=== PATIENT | male | born 2000 | race Two or more races ===

== ENCOUNTER 2024-10-10 03:31 | Emergency (ER) | payer MEDICAID, OTHER ==
[~2024-10-10] VITALS: Ht 165.1 cm; Wt 86.4 kg
--- NOTE | 2024-10-10 04:04 | ED.PDOC ---
Eye-HPI HPI Comments PATIENT COMES WITH C/C OF UPPER TOOTH PAIN 10/10 FOR 2 MONTHS AND AN INCREASED HEADACHE FOR 2 HOURS SENSITIVE TO HEAT AND COLD. PATIENT HAS RIGHT SIDED FACIAL SWELLING. REPORTS THAT HE HASNT BEEN ABLE TO GET TO HIS DENTIST IN [place]. Chief Complaint: Tooth Pain Time Seen by MD: 03:53 Reviewed Notes: Nurses Notes, Medications, Allergies Allergies: Coded Allergies: NO KNOWN ALLERGIES (Unverified , 10/10/24) Home Meds Active Scripts Ibuprofen (Ibuprofen) 800 Mg Tab, 800 MG PO Q8HP PRN for 5 Days, #15 TAB Prov:CARINE HERBERTK MANAGER GALLERY 10/10/24 Amoxicillin & Pot Clavulanate (AUGMENTIN TABLET) 875 Mg Tb, 875 MG PO BID for 7 Days, #14 TAB Prov:DELORIS HERBERT MANAGER GALLERY 10/10/24 Information Source: Patient Past Medical History PAST MEDICAL HISTORY: Denies Surgical History: Denies all surgeries Family History Family History: Unknown Social History Smoker: Non-Smoker Alcohol: Denies ETOH Use Drugs: Denies Drug Use Constitutional: denies: chills, diaphoresis, fatigue, fever, malaise, sweats, weakness, others EENTM: reports: others (Dental pain); denies: blurred vision, double vision, ear bleeding, ear discharge, ear drainage, ear pain, ear ringing, eye pain, eye redness, hearing loss, mouth pain, mouth swelling, nasal discharge, nose b leeding, nose congestion, nose pain, photophobia, tearing, throat pain, throat swelling, voice changes Respiratory: denies: cough, hemoptysis, orthopnea, SOB at rest, shortness of breath, SOB with excertion, stridor, wheezing, others Cardiovascular: denies: chest pain, dizzy spells, diaphoresis, Dyspnea on exertion, edema, irregular heart beat, left arm pain, lightheadedness, palpitations, PND, syncope, others Gastrointestinal: denies: abdomen distended, abdominal pain, blood streaked bowels, constipated, diarrhea, dysphagia, difficulty swallowing, hematemesis, melena, nausea, poor appetite, poor fluid intake, rectal bleeding, rectal pain, vomiting, others Genitourinary: denies: burning, dysuria, flank pain, frequency, hematuria, incontinence, penile discharge, penile sore, pain, testicle pain, testicle swelling, urgency, others Neurological: denies: dizziness, fainting, headache, left sided numbness, left sided weakness, numbness, paresthesia, pre-existing deficit, right sided numbness, right sided weakness, seizure, speech problems, tingling, tremors, weakness, others Musculoskeletal: denies: back pain, gout, joint pain, joint swelling, muscle pain, muscle stiffness, neck pain, others Integumetry: denies: bruises, change in color, change in hair/nails, dryness, laceration, lesions, lumps, rash, wounds, others Allergic/Immunocompromised: denies: Difficulty Healing, Frequent Infections, Hives, Itching, others Hematologic/Lymphatic: denies: anemia, blood clots, easy bleeding, easy bruising, swollen glands, others Endocrine: denies: excessive hunger, excessive sweating, excessive thirst, excessive urination, flushing, intolerance to cold, intolerance to heat, unexplained weight gain, unexplained weight loss, others Psychiatric: denies: anxiety, bipolar disorder, depression, hopeless, panic disorder, schizophrenia, sleepless, suicidal, others Physical Exam General Appearance: No Apparent Distress, Normal HEENT: Pharynx Normal, TMs Normal, Other (RIGHT UPPER TOOTH 17. NOTED DECAY NO NOTED VISIBLE ABSCESS GUM ERYTHEMA NOTED ) Neck: Full Range of Motion, Non-Tender Respiratory: Lungs Clear, No Respiratory Distress, Normal Breath Sounds Cardiovascular: No Murmur, Normal Peripheral Pulses, Regular Rate/Rhythm Breast Exam: Deferred Gastrointestinal: Non Tender, Soft Genitalia: Deferred Pelvic: Deferred Rectal: Deferred Extremities: Normal capillary refill, Normal range of motion Musculoskeletal : Apperance: Normal Neurologic: Alert, sound effects manager II-XII nml as Tested, No Motor Deficits, Normal Affect, Normal Mood, No Sensory Deficits Cerebellar Function: Normal Reflexes: Normal Skin: Dry, Normal Color, Warm Lymphatic: No Adenopathy Was a procedure done? Was a procedure done?: No EENT DIFF Eye: N/A Ear: Otitis Media, Perforation, Dental, Pharyngitis X-Ray, Labs, Meds, VS Vital Signs Date Time Temp Pulse Resp B/P (MAP) Pulse Ox O2 Delivery O2 Flow Rate FiO2 5/5/25 03:52 98.9 72 20 139/78 (98) 97 98.9 Current Medications Medications (Trade) Dose Ordered Sig/Jessica Route Start Time Stop Time Status Last Admin Ketorolac Tromethamine (Toradol Injection) 60 mg ONCE ONCE IM 10/10/24 04:30 10/10/24 04:31 DC 10/10/24 04:44 Benzocaine (Hurricaine [place]) 1 spr ONCE ONCE MT 10/10/24 04:30 10/10/24 04:31 DC 10/10/24 04:45 Ceftriaxone Sodium (Rocephin) 1,000 mg ONCE ONCE IM 10/10/24 04:30 10/10/24 04:31 DC 10/10/24 04:44 Acetaminophen/ Hydrocodone Bitart ([place] 5/325MG Tab) 1 tab ONCE ONCE PO 10/10/24 04:30 10/10/24 04:31 DC 10/10/24 04:44 Time of 1ST Reevaluation: 03:30 Reevaluation 1ST: Unchanged Time of 2ND Reevaluation: 05:16 Reevaluation 2ND: Improved Patient Education/Counseling: Diagnosis, Treatment, Prognosis, Need For Follow Up Family Education/Counseling: No Family Present Departure 1 Departure Time of Disposition: 05:16 Impression: Primary Impression: Infected dental caries Disposition: 01 HOME / SELF CARE / HOMELESS Condition: Stable e-Prescriptions Ibuprofen (Ibuprofen) 800 Mg Tab 800 MG PO Q8HP PRN for 5 Days, #15 TAB Prov: DELORIS HERBERT 10/10/24 Amoxicillin & Pot Clavulanate (AUGMENTIN TABLET) 875 Mg Tb 875 MG PO BID for 7 Days, #14 TAB Prov: DELORIS HERBERT 10/10/24 Discharged With: Self Critical Care Note Critical Care Time?: No Stability Stability form required: DELORIS Claudio October 10, 2024 04:04
[2024-10-10] MEDS ORDERED: IBUP-1456 PO (04:28)
[2024-10-10] MEDS ORDERED: AUG875T PO (04:28)
[2024-10-10 04:44] VITALS: BP 124/60; PULSE 65; RESP 19; TEMP 98.4; O2SAT 98
[2024-10-10] MEDS: cefTRIAXone SOD 1,000 MG VL IM ONE (04:44)
[2024-10-10] MEDS: HYDROcodone-ACET 5/325MG TAB PO ONE (04:44)
[2024-10-10] MEDS: KETOROLAC TROMETH 60MG/2ML VIAL IM ONE (04:44)
[2024-10-10] MEDS: BENZOCAINE (DENTAL) 20 % SPRAY 60ML MT ONE (04:45)
== END 2024-10-10 05:25 | disposition home or self-care (01) ==
LOC: ER 03:31
DX: K02.9 Dental caries, unspecified (principal); K04.7 Periapical abscess without sinus
CPT/HCPCS: 96372; 99284; J0696; J1885